=== PATIENT | female | born 1955 | race Caucasian/White ===

== ENCOUNTER → 2018-02-16 | Outpatient (CLI) | payer OTHER ==
[~2018-02-16] MED LIST: CELE-1 PO; CEP500 PO; CYC10 PO; DOC100 PO; LOR5 PO; TRA50 PO; WAR75 PO; WARF10TA29 PO
--- NOTE | 2018-02-17 08:27 | RADIOLOGY IMAGING REPORT ---
FACILITY: [facility] PATIENT NAME: BEVERLEY ZHU : [id number] MR: [id number] V: [id number] EXAM DATE: [id number] ORDERING PHYSICIAN: TERRY GARAY TECHNOLOGIST: Tish Chambers PROCEDURE:BILATERAL DIGITAL SCREENING MAMMOGRAM WITH CAD ASSISTED INTERPRETATION & 3D TOMOSYNTHESIS COMPARISON:None. INDICATIONS:SCREENING FINDINGS: The breasts are heterogeneously dense which can obscure small masses. Just lateral to midline in the middle 1/3 of the Right breast on the Right CC view there is a suggestion of a well circumscribed nodular density. Spot compression view is recommended for further evaluation. DIAGNOSTIC CATEGORY 0--INCOMPLETE: NEED ADDITIONAL IMAGING EVALUATION. RECOMMENDATIONS: ADDITIONAL MAMMOGRAPHIC VIEWS REQUIRED: RIGHT BREAST. IMPRESSION: BIRADS 0: Incomplete. Additional views of the Right breast recommended for further evaluation. Dictated by: Janey Gillespie M.D. on 02/16/2018 at 17:14 Transcribed by: AMBER on 02/17/2018 at 8:21 Approved by: Janey Gillespie M.D. on 02/17/2018 at 8:26 [facility]
== END ==
LOC: MAMO 00:47 → EDSTATUS 06:50 → MAMO 06:50 → EDSTATUS 14:00 → MAMO 14:02
PROVIDERS: ATTEND Nurse Practitioner
DX: R92.2 Inconclusive mammogram (principal)
CPT/HCPCS: 77063; 77067

== ENCOUNTER → 2018-02-18 | Outpatient (REF) ==
--- NOTE | 2018-02-18 14:58 | RADIOLOGY IMAGING REPORT ---
FACILITY: [facility] PATIENT NAME: Yashira Malhotra : 1955 MR: [id number] V: [id number] EXAM DATE: ORDERING PHYSICIAN: TERRY GARAY TECHNOLOGIST: Location: [facility] Patient: Yashira Malhotra : 1955 Visit/Account:[id number] Date of Sevice: 02/18/2018 Exam type: US VENOUS LOWER EXT LT History: Left leg pain, history of DVT and PE Comparison: December 02, 2013. Findings: Left lower extremities veins were imaged including the left common femoral vein, greater saphenous ve in, superficial femoral vein, popliteal vein, posterior tibial vein, peroneal vein and anterior tibia l vein revealing no evidence of intraluminal thrombi. The veins were compressible and demonstrated a ugmentation IMPRESSION: 1. No sonographic evidence DVT involving the left lower extremity veins Report Dictated By: Janey Gillespie MD at 02/18/2018 2:52 PM Report E-Signed By: Janey Gillespie MD at 02/18/2018 2:53 PM WSN:[email or web address]
== END ==
LOC: US 10:35
PROVIDERS: ATTEND Nurse Practitioner
DX: M79.605 Pain in left leg (principal); Z86.718 Personal history of other venous thrombosis and embolism